=== PATIENT | male | born 1985 | race Caucasian/White ===

== ENCOUNTER 2017-01-23 12:42 | Emergency (ER) | payer BC ==
[2017-01-23 12:53] VITALS: BP 161/93
[2017-01-23] MEDS ORDERED: HYDROmorphone 1 MG/ML Syringe IVPUSH ONE (13:00)
[2017-01-23] MEDS ORDERED: Metoclopramide 10 MG/2 ML SDV IVPUSH ONE (13:00)
[2017-01-23] MEDS ORDERED: Sodium Chloride 0.9% 1,000 ML IV SCH (13:00)
--- NOTE | 2017-01-23 13:00 | EDM.PDOC ---
ED HPI GENERAL MEDICAL PROBLEM - General Chief Complaint: Abdominal Pain Stated Complaint: UPPER Rt ABDOMINAL PAIN,HARD TO BREATHE,SWEATING Time Seen by Provider: 01/23/17 12:57 Source of Information: Reports: Patient History Limitations: Reports: No Limitations - History of Present Illness INITIAL COMMENTS - FREE TEXT/NARRATIVE: 31-year-old male presents the ED with acute onset of severe right upper quadrant abdominal pain that radiates laterally along the costal margin into his back. Painful to take a deep breath. Patient is prone to heartburn has chronic dyspepsia and uses Tums or Rolaids daily. Denies any hematemesis. Pain is bad enough to make him nauseated but has not vomited. Bowel function is usually quite active like 6 or 7 bowel movements per day. No previous abdominal surgery. 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) (None.) Right Upper Abdominal Pain Score (Numeric/FACES): 8 - Related Data Allergies Allergy/AdvReac Type Severity Reaction Status Date / Time amoxicillin Allergy Rash Verified 01/23/17 12:49 cephalexin monohydrate Allergy Rash Verified 01/23/17 12:49 [From Keflex] Home Meds: Home Meds Omeprazole 20 mg PO DAILY 01/23/17 [History] Ondansetron [Zofran] 4 mg BUCCAL Q6H PRN #5 tab 01/23/17 [Rx] oxyCODONE HCl/Acetaminophen [Percocet 5-325 mg Tablet] 1 - 2 each PO Q4H PRN # 10 tablet 01/23/17 [Rx] Past Medical History Cardiovascular History: Reports: Blood Clots/VTE/DVT Gastrointestinal History: Reports: GERD (Daily GERD. Of note he is very large in stature and likely has a hiatal hernia.) Musculoskeletal History: Reports: Other (See Below) Other Musculoskeletal History: L ankle arthroscopy, L shoulder surgery for dislocation - Past Surgical History Other HEENT Surgeries/Procedures: nasal surgery x 2 Musculoskeletal Surgical History: Reports: Other (See Below) Social & Family History - Family History Family Medical History: Noncontributory - Tobacco Use Smoking Status *Q: Never Smoker Years of Tobacco use: 11 Packs/Tins Daily: 1 - Recreational Drug Use Recreational Drug Use: No Recreational Drug Use Frequency: Not Used In Over 3 Months - Living Situation & Occupation Living situation: Reports: 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 Denies: Fever, Chills, Malaise, Weakness, Fatigue, Weight Loss HEENT: Reports: No Symptoms Respiratory: Reports: Shortness of Breath (Deep breathing makes the abdominal pain worse.) Cardiovascular: Reports: No Symptoms Endocrine: Reports: No Symptoms GI/Abdominal: Reports: Abdominal Pain, Nausea (Due to acute pain.). Denies: Constipation : Reports: No Symptoms Musculoskeletal: Reports: Back Pain (Pain radiates along the costal margin into his right back.) Skin: Reports: No Symptoms Neurological: Reports: No Symptoms Psychiatric: Reports: No Symptoms Immunologic: Reports: No Symptoms ED EXAM, GI/ABD - Physical Exam Exam: See Below Exam Limited By: No Limitations General Appearance: Alert, Moderate Distress (In obvious discomfort.) Eyes: Bilateral: Normal Appearance Throat/Mouth: Normal Inspection, Normal Lips, Normal Teeth, Normal Oropharynx Head: Atraumatic, Normocephalic Neck: Normal Inspection, Supple, Non-Tender, Full Range of Motion. No: Lymphadenopathy (L), Lymphadenopathy (R) Respiratory/Chest: Normal Breath Sounds, Respiratory Distress (Tachypnea at rest.), Decreased Breath Sounds (Due to splinting respirations.) Cardiovascular: Normal Peripheral Pulses, Regular Rate, Rhythm, No Edema, No Gallop, No Murmur, No Rub GI/Abdominal Exam: Normal Bowel Sounds, Soft, Non-Tender, No Organomegaly, Tender (Right upper quadrant of the abdomen), Other (Large abdominal girth limits ability to palpate solid organs. No true Lopez sign evident.) (Male) Exam: No Hernia Back Exam: Normal Inspection, Full Range of Motion, CVA Tenderness (R). No: CVA Tenderness (L) Extremities: Normal Inspection (Mild.), Normal Range of Motion, Non-Tender, No Pedal Edema Neurological: Alert, Oriented, CN II-XII Intact, Normal Cognition Psychiatric: Normal Affect, Normal Mood Skin Exam: Warm, Dry, Intact, Normal Color, No Rash Course - Vital Signs Last Recorded V/S: Last Vital Signs Temp 36.7 C 01/23/17 12:50 Pulse 108 H 01/23/17 12:50 Resp BP 161/93 H 01/23/17 12:50 Pulse Ox 100 01/23/17 12:50 - Orders/Labs/Meds Labs: Laboratory Tests 01/23/17 01/23/17 01/23/17 Range/Units 12:55 12:55 12:55 WBC 17.14 H (4.23-9.07) K/mm3 RBC 4.95 (4.63-6.08) M/mm3 Hgb 14.4 (13.7-17.5) gm/L Hct 42.3 (40.1-51.0) % MCV 85.5 (79.0-92.2) fl MCH 29.1 (25.7-32.2) pg MCHC 34.0 (32.2-35.5) g/dl RDW Std Deviation 41.1 (35.1-43.9) fL Plt Count 314 (163-337) K/mm3 MPV 10.0 (9.4-12.3) fl Neutrophils % (Manual) 82 H (40-60) % Band Neutrophils % 0 (0-10) % Lymphocytes % (Manual) 14 L (20-40) % Atypical Lymphs % 0 % Monocytes % (Manual) 3 (2-10) % Eosinophils % (Manual) 0 L (0.8-7.0) % Basophils % (Manual) 1 (0.2-1.2) Platelet Estimate Adequate Plt Morphology Comment Normal RBC Morph Comment Normal Sodium 143 (136-145) mEq/L Potassium 4.3 (3.5-5.1) mEq/L Chloride 105 (98-107) mEq/L Carbon Dioxide 28 (21-32) mEq/L Anion Gap 14.3 (5-15) BUN 14 (7-18) mg/dL Creatinine 1.2 (0.7-1.3) mg/dL Est Cr Clr Drug Dosing 110.51 mL/min Estimated GFR (MDRD) > 60 (>60) mL/min BUN/Creatinine Ratio 11.7 L (14-18) Glucose 116 H (74-106) mg/dL Calcium 9.3 (8.5-10.1) mg/dL Total Bilirubin 0.9 (0.2-1.0) mg/dL AST 36 (15-37) U/L ALT 86 H (16-63) U/L Alkaline Phosphatase 59 (46-116) U/L C-Reactive Protein < 0.2 (<1.0) mg/dL Total Protein 7.5 (6.4-8.2) g/dl Albumin 3.9 (3.4-5.0) g/dl Globulin 3.6 gm/dL Albumin/Globulin Ratio 1.1 (1-2) Amylase 69 (25-115) U/L H. pylori IgG Antibody Negative (NEGATIVE) Meds: Medications Discontinued Medications Generic Name Dose Route Start Last Admin Trade Name Freq PRN Reason Stop Dose Admin Hydromorphone HCl 1 mg 01/23/17 13:00 01/23/17 13:16 Dilaudid IVPUSH 01/23/17 13:01 1 mg ONETIME ONE Administration Sodium Chloride 1,000 mls @ 150 mls/hr 01/23/17 13:00 01/23/17 14:20 Normal Saline IV 150 mls/hr ASDIRECTED BRINA Administration Ketorolac Tromethamine 30 mg 01/23/17 13:15 01/23/17 13:23 Toradol IVPUSH 30 mg ONETIME BRINA Administration Metoclopramide HCl 10 mg 01/23/17 13:00 01/23/17 13:11 Reglan IVPUSH 01/23/17 13:01 10 mg ONETIME ONE Administration - Radiology Interpretation Free Text/Narrative:: 31-year-old male presents to the ED with acute onset of severe right upper quadrant abdominal pain that radiates along the costal margin into his right flank area. It occurred while he was at work. He has had very little to eat yet today. Associated nausea without any vomiting. No previous similar type pain. Patient has a history of chronic GERD and dyspepsia. Takes Tums and Rolaids daily. Of note he is obese and reports reflux often at nighttime. No previous abdominal surgery. Function is usually regular. Does not drink much alcohol. Clinically he presents like an acute biliary colic although I cannot identify a definitive positive Lopez sign. Plan IV normal saline at 150 mils per hour. Given Dilaudid 1 mg IV with Reglan 10 mg IV and Toradol 30 mg IV. I have routine labs ordered and I will order a GB ultrasound. - Re-Assessments/Exams Free Text/Narrative Re-Assessment/Exam: 01/23/17 13:48 one view of the chest is within normal limits. There is no free air. KUB was done in 3 sections due to his large size. It reveals increased stool throughout the left hemicolon a collection of air in the transverse colon no signs of bowel obstruction. No gallstones were evident on the x-ray. 01/23/17 14:14 labs are back and reveal an elevated white count at 17.14 with 82 % neutrophils and no bands. Hemoglobin is 14.14 hematocrit is 42.3 platelets 314 ,000. Chemistry is essentially normal with an anion gap of 14.3 glucose 116. Bilirubin is 0.9 AST is 36 AST mildly elevated at 86. Alk phosphatase normal no signs of biliary tree obstruction CRP is less than 0.2 H. pylori was negative. Amylase is 69. Patient is still in the imaging department but was feeling improved prior to his gallbladder ultrasound. 01/23/17 14:35 gallbladder ultrasound has been completed. It does not identify any stones. Gallbladder is mildly contracted and therefore the gallbladder wall is slightly thickened. There are no signs per cholecystic fluid to suggest acute cholecystitis. 01/23/17 15:00 radiologist agrees with no positive findings on ultrasound. Patient still gets twinges of pain up underneath his right costal margin but it is improved. I will therefore discharge him to home on a low-fat diet. I will give him a few tablets of Percocet /25 to be taken if needed for recurrence of similar type pain. 1 Departure - Departure Time of Disposition: 15:00 Disposition: Home, Self-Care 01 Condition: Fair Clinical Impression: Biliary colic - Discharge Information Prescriptions: Ondansetron [Zofran] 4 mg BUCCAL Q6H PRN #5 tab PRN Reason: nausea or vomiting oxyCODONE HCl/Acetaminophen [Percocet 5-325 mg Tablet] 1 - 2 each PO Q4H PRN # 10 tablet PRN Reason: pain relief. Instructions: Biliary Colic Referrals: Landy Horn PA [Primary Care Provider] - Forms: ED Department Discharge Additional Instructions: Evaluation the emergency room today in regards to acute onset of right upper quadrant abdominal pain up underneath the ribs. The pain and the distribution were characteristic of gallbladder attack. An ultrasound of your gallbladder does not reveal any gallstones. Sometimes slight within the gallbladder can cause the same symptoms. Is improved with IV medication for pain and nausea. All of your lab work proved to be otherwise completely normal. Also x-ray of the abdomen and chest were normal as well.. Therefore treatment is low fat diet for the next several days. Plenty of fluids. If pain returns may trichomoniasis Zofran 4 mg under the tongue and 2 Percocet tablets for pain relief. This fails to control the pain then returned to the ED. The seminal prongs continue may need further investigation of the gallbladder by way of HIDA scan. Sprue is whether or not the gallbladder is functioning normally and whether or not it needs to be removed.
[2017-01-23] MEDS ORDERED: Ketorolac 30 MG/ML SDV IVPUSH SCH (13:15)
--- NOTE | 2017-01-23 14:24 | CR ---
Abdomen: Supine view of the abdomen was obtained. Comparison: No previous abdominal x-ray. Bowel gas pattern is normal. No abnormal calcifications or soft tissue abnormality is seen. Bony structures are unremarkable. Impression: 1. No abnormality is seen on supine abdominal x-ray. Diagnostic code #1
--- NOTE | 2017-01-23 14:40 | US ---
Limited abdominal ultrasound: Multiple real-time images of the upper right abdomen were obtained. Liver is echogenic. No focal abnormality is appreciated within the liver. Gallbladder shows no gallstones. No gallbladder wall thickening or biliary duct dilatation is seen. Right kidney shows no hydronephrosis or mass and has a length of 12.2 cm. Pancreas poorly seen due to bowel gas. Portal vein shows normal hepatopedal flow. Impression: 1. Echogenic liver most likely representing fatty infiltration. 2. Nonvisualized pancreas due to bowel gas. 3. No additional abnormality is identified on right upper quadrant abdominal ultrasound. Diagnostic code #3
--- NOTE | 2017-01-23 14:43 | CR ---
Chest: Frontal view of the chest was obtained. Comparison: Previous chest x-ray of 07/05/15. Heart size and mediastinum are within normal limits. Lungs are clear. Bony structures appear grossly intact. Impression: 1. Nothing acute is seen on frontal chest x-ray. Diagnostic code #1
== END 2017-01-23 15:10 | disposition home or self-care (01) ==
LOC: JD.ED 12:42
DX: K80.50 Calculus of bile duct without cholangitis or cholecystitis without obstruction (principal); K21.9 Gastro-esophageal reflux disease without esophagitis; Z79.899 Other long term (current) drug therapy; Z88.1 Allergy status to other antibiotic agents
CPT/HCPCS: 36415; 71010; 74000; 76705; 80053; 82150; 85025; 86140; 86677; 96361; 96374; 96375; 99285; J1170; J1885; J2765; J7040; 99284

== ENCOUNTER 2017-04-04 06:51 | Day surgery (SDC) | payer BC ==
[~2017-04-04 06:51] MED LIST: Lactated Ringers 1,000 ML IV SCH; Lidocaine 1%/Sod Bicarbonate in NS 8.4% 1 ML Syringe PRN; Sodium Chloride 0.9% 10 ML Syringe FLUSH PRN
--- NOTE | 2017-04-04 07:26 | PCM.PREANE ---
Preanesthetic Assessment - Anesthesia/Transfusion/Family Hx Anesthesia History: Prior Anesthesia Without Reaction Family History of Anesthesia Reaction: No Transfusion History: No Prior Transfusion(s) - Review of Systems General: No Symptoms Pulmonary: No Symptoms Cardiovascular: No Symptoms Gastrointestinal: No Symptoms, Other (heartburn) Neurological: No Symptoms Other: Reports: Throat Pain (heartburn) - Physical Assessment NPO Status Date: 04/04/17 (chew tobacco this am) NPO Status Time: 02:00 Pulse: 98 O2 Sat by Pulse Oximetry: 94 Respiratory Rate: 16 Blood Pressure: 143/90 Temperature: 98.3 F Height: 6 ft 4 in Weight: 144.8 kg ASA Class: 2 Mental Status: Alert & Oriented x3 Airway Class: Mallampati = 1 Dentition: Reports: Normal Dentition Thyro-Mental Finger Breadths: 3 Mouth Opening Finger Breadths: 3 ROM/Head Extension: Full Lungs: Clear to Auscultation, Normal Respiratory Effort Cardiovascular: Regular Rate, Regular Rhythm - Allergies Allergies/Adverse Reactions: Allergies Allergy/AdvReac Type Severity Reaction Status Date / Time amoxicillin Allergy Rash Verified 01/23/17 12:49 cephalexin monohydrate Allergy Rash Verified 01/23/17 12:49 [From Keflex] - Blood Blood Available: No - Acknowledgements Anesthesia Type Planned: MAC Pt an Appropriate Candidate for the Planned Anesthesia: Yes Alternatives and Risks of Anesthesia Discussed w Pt/Guardian: Yes Pt/Guardian Understands and Agrees with Anesthesia Plan: Yes PreAnesthesia Questionnaire Cardiovascular History: Reports: Blood Clots/VTE/DVT (after surgery-) Respiratory History: Reports: Sleep Apnea Gastrointestinal History: Reports: GERD, Other (See Below) Other Gastrointestinal History: dysphagia Genitourinary History: Reports: None 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 Musculoskeletal History: Reports: Other (See Below) Other Musculoskeletal History: L ankle arthroscopy, L shoulder surgery for dislocation, left achilles tendon contracture, high foot arch, left ankle pain and osteoartritis Neurological History: Reports: None Psychiatric History: Reports: None Endocrine/Metabolic History: Reports: Obesity/BMI 30+ Hematologic History: Reports: None Immunologic History: Reports: None Oncologic (Cancer) History: Reports: None Dermatologic History: Reports: None - Past Surgical History Head Surgeries/Procedures: Reports: None HEENT Surgical History: Reports: Adenoidectomy, Tonsillectomy Other HEENT Surgeries/Procedures: nasal surgery x 2 Cardiovascular Surgical History: Reports: None Respiratory Surgical History: Reports: None GI Surgical History: Reports: None Female Surgical History: Reports: None Male Surgical History: Reports: None Endocrine Surgical History: Reports: None Neurological Surgical History: Reports: None Musculoskeletal Surgical History: Reports: Other (See Below) Other Musculoskeletal Surgeries/Procedures:: L shoulder surgery for dislocation , Left ankle surgery 06/17/15 Oncologic Surgical History: Reports: None Dermatological Surgical History: Reports: None - History Comment History Comment: takes prilosec - SUBSTANCE USE Tobacco Use Within Last Twelve Months: Snuff/Dip Second Hand Smoke Exposure: No Days Per Week of Alcohol Use: 0 Recreational Drug Use History: No - HOME MEDS Home Medications: Home Meds Omeprazole 20 mg PO DAILY 01/23/17 [History] Esomeprazole [NexIUM] 40 mg PO BEDTIME 04/03/17 [History] - CURRENT (IN HOUSE) MEDS Current Meds: Current Medications Lactated Ringer's (Ringers, Lactated) 1,000 mls @ 125 mls/hr IV ASDIRECTED BRINA Stop: 04/04/17 23:00 Lidocaine/Sodium Bicarbonate (Buffered Lidocaine 1% In Ns 8.4%) 0.25 ml .XX ONETIME PRN PRN Reason: Prior to IV Start Stop: 04/04/17 18:00 Sodium Chloride (Saline Flush) 10 ml FLUSH ASDIRECTED PRN PRN Reason: Keep Vein Open Stop: 04/04/17 18:00
[2017-04-04] MEDS ORDERED: Lidocaine 1% 4 ML ONE (07:33)
[2017-04-04] MEDS ORDERED: Propofol 200 MG/20 ML SDV ONE ×2 (07:33→08:00)
[2017-04-04] MEDS ORDERED: fentaNYL 100 MCG/2 ML SDV ONE (07:34)
[2017-04-04] MEDS ORDERED: Midazolam 1 MG/ML 2 ML SDV ONE (07:34)
[2017-04-04] MEDS ORDERED: Ondansetron 4 MG/2 ML SDV IVPUSH PRN (08:19)
--- NOTE | 2017-04-04 08:20 | PCM48HPAN ---
Post Anesthesia Note - EVALUATION WITHIN 48HRS OF ANESTHETIC Vital Signs in Normal Range: Yes Patient Participated in Evaluation: Yes Respiratory Function Stable: Yes Airway Patent: Yes Cardiovascular Function Stable: Yes Hydration Status Stable: Yes Pain Control Satisfactory: Yes Nausea and Vomiting Control Satisfactory: Yes Mental Status Recovered: Yes
--- NOTE | 2017-04-04 08:22 | PCM.OPNOTE ---
- General Post-Op/Procedure Note Date of Surgery/Procedure: 04/04/17 Operative Procedure(s): Esophagogastroduodenoscopy with antral and GE junction and proximal esophageal biopsies Findings: 1. Mild antritis characterized by multiple isolated areas of erythema with no ricardo ulcers 2. Severe esophagitis with multiple nonconfluent esophageal ulcers and with no endoscopic Torres's change, or stricturing 3. No hiatal hernia was appreciated. Pre Op Diagnosis: GERD with dysphagia Post-Op Diagnosis: 1. Complicated chronic GERD -- Multiple distal esophageal ulcers. 2. Mild antritis Anesthesia Technique: MAC, Moderate Sedation Primary Surgeon: Peyman Haynes Pathology: Proximal and distal esophageal biopsies Multiple antral biopsies EBL in mLs: 0 Complications: None Condition: Good Free Text/Narrative:: After adequate IV sedation and anesthesia was obtained with monitoring the patient was placed on his left side. Through a bite-block lubricated upper endoscope was inserted into the esophagus and advanced under direct vision to the stomach. Additional air was given here. On inspection of the antrum there were multiple small areas of erythema with no ricardo ulcers. The scope was introduced into the pyloric region then into the second part of the duodenum. The second and first parts of the duodenum were endoscopically normal. I biopsied the antrum in 2 areas for histologic review. In the retroflexed view there was no hiatal hernia. The fundic and cardiac regions were normal. The body of the stomach was grossly normal as well. The scope was then withdrawn to the just above the GE junction. There were several nonlinear deep ulcers containing exudate in their respective bases at the GE junction with no endoscopic Torres's change. The ulcers were not confluent. There was no ricardo stricturing seen. The body of the esophagus was unremarkable. I took 2 biopsies in the area of the ulcers. In the proximal third of the esophagus I also took a biopsy given his history of dysphagia. The vocal cords were briefly visualized on extubation and were normal. Chemists photographs were taken for the patient and for the medical record. There were no complications.
[2017-04-04 08:43] VITALS: BP 120/76
== END 2017-04-04 08:40 | disposition home or self-care (01) ==
LOC: JD.SDS 06:51
PROVIDERS: ATTEND Surgery
DX: K29.60 Other gastritis without bleeding (principal); K21.0 Gastro-esophageal reflux disease with esophagitis; K22.10 Ulcer of esophagus without bleeding; E66.9 Obesity, unspecified; G47.33 Obstructive sleep apnea (adult) (pediatric); Z88.1 Allergy status to other antibiotic agents; Z79.899 Other long term (current) drug therapy; Z72.0 Tobacco use; Z68.39 Body mass index [BMI] 39.0-39.9, adult
CPT/HCPCS: 43239; J2250; J3010; J7120; 00731; J2001; J2704